=== PATIENT | female | born 1985 | race Hispanic/Latino ===

== ENCOUNTER 2019-09-07 17:03 | Outpatient (CLI) | payer BC, SELFPAY ==
--- NOTE | ~2019-09-07 | CT_ITS ---
EXAMINATION: CT abdomen pelvis w con INDICATION: Right lower quadrant pain TECHNIQUE: Computed tomographic images of the abdomen and pelvis were obtained after the administrati on of 100 cc of Omnipaque 350 intravenous contrast. The dose-length product (DLP) was 187.40 mGy-cm. Automated exposure control and iterative reconstruction technique were employed. COMPARISON: None available FINDINGS: Minimal dependent atelectasis is present in the lung bases. The heart size is normal. The l iver, spleen, pancreas, gallbladder, and adrenal glands are normal. The kidneys are unremarkable. No pathologically enlarged abdominal or pelvic lymph nodes are identified. There is no free intraperiton eal gas or evidence of bowel obstruction. A small volume of free fluid in the pelvis is likely physio logic. A corpus luteum is noted in the left ovary. A large volume of colonic stool is present. The ap pendix is not definitely identified however no right lower quadrant inflammatory change is seen. IMPRESSION: 1. Constipation. Reviewed, dictated and finalized at location [facility]. IMPRESSION: 1. Constipation.
[2019-09-07 18:33] LABS: Basophils Percent Auto 0.3 % (0.2-1.2); Eosinophils Absolute Auto 0.1 K/mm3 (0-0.3); Eosinophils Percent Auto 1.1 % (0-4.4); Hematocrit 33.3 % (37.0-47.0); Hemoglobin 10.8 g/dL (12.0-15.0); Immature Granulocyte Absolute 0.02 K/mm3 (0.00-0.031); Immature Granulocyte Percent A 0.3 % (0-0.5); Lymphocytes Absolute Auto 2.51 K/mm3 (0.9-3.2); Lymphocytes Percent Auto 33.6 % (18.3-44.2); Mean Corpuscular HGB Conc 32.4 g/dl (32-36); Mean Corpuscular Hemoglobin 28.6 pg (26-34); Mean Corpuscular Volume 88.1 fl (80-100); Mean Platelet Volume 11.4 fl (7.4-10.4); Monocytes Absolute Auto 0.7 K/mm3 (0.1-0.6); Monocytes Percent Auto 9.2 % (2.6-8.5); Neutrophils Absolute Auto 4.2 K/mm3 (1.3-6.7); Neutrophils Percent Auto 55.5 % (45.5-73.1); Platelet Count Result 257 k/mm3 (150-375); Red Blood Count 3.78 M/mm3 (4.2-5.4); Red Cell Distribution Width 13.2 % (11.5-14.5); White Blood Count 7.5 K/mm3 (4.5-10.0)
[2019-09-07 18:44] LABS: Alanine Aminotransferase 14 U/L (4-35); Albumin Level 4.6 g/dL (3.5-5.1); Alkaline Phosphatase 123 U/L (38-126); Aspartate Amino Transferase 25 U/L (14-36); Bilirubin,Total 0.2 mg/dL (0.2-1.3); Blood Urea Nitrogen 15 mg/dL (7-17); Calcium 9.1 mg/dL (8.4-10.2); Carbon Dioxide 25 mmol/L (22-30); Chloride 102 mmol/L (98-107); Estimated Glomerular Filt Rate > 60; Glucose 96 mg/dL (65-105); Potassium 4.2 mmol/L (3.4-5.0); Sodium 135 mmol/L (137-145)
== END 2019-09-07 17:04 | disposition home or self-care (01) ==
PROVIDERS: PCP Nurse Practitioner Family; Visit Provider Nurse Practitioner Family
DX: R10.31 Right lower quadrant pain (principal); R10.813 Right lower quadrant abdominal tenderness; K59.00 Constipation, unspecified
CPT/HCPCS: 36415; 74177; 80053; 85025; Q9967

== ENCOUNTER 2022-04-23 16:56 | Emergency (ER) | payer OTHER, SELFPAY ==
[2022-04-23 17:07] VITALS: BP 113/63; PULSE 72; RESP 12; TEMP 37; O2SAT 100
[2022-04-23 17:08] VITALS: BP 113/63; PULSE 72; RESP 12; TEMP 37; O2SAT 100
--- NOTE | 2022-04-23 17:34 | ED.ABDPAIN ---
HPI - Abdominal Pain General Chief Complaint: Abdominal Pain Stated Complaint: right side abd pain Time Seen by Provider: 04/23/22 17:35 Source: patient and RN notes reviewed Mode of arrival: ambulatory Limitations: no limitations History of Present Illness HPI narrative: 36-year-old female presented for complaint of right lower abdominal pain worsening over the past few days. She reports pain is anywhere from 3 to 7/10. She has had intermittent abdominal pain for about 4 months. Denies nausea, vomiting, diarrhea, fevers or chills. She has had 3 normal bowel movements today. Appetite is normal. patient is primarily Yakut speaking and requests her translate. LMP 04/07/22. Related Data Home Medications Medication Instructions Recorded Confirmed No Home Medications 04/23/22 04/23/22 Allergies Allergy/AdvReac Type Severity Reaction Status Date / Time No Known Allergies Allergy Verified 04/23/22 17:08 Review of Systems Review of Systems: CONSTITUTIONAL: Denies body aches, fever, chills CARDIOVASCULAR: Denies chest pain, palpitations, or edema. RESPIRATORY: Denies cough or dyspnea. GASTROINTESTINAL: Endorses abdominal pain, Denies nausea, vomiting, diarrhea, hematochezia, melena GENITOURINARY: Denies dysuria, hematuria, or CVA tenderness. SKIN: Denies rash, itching, or wounds. MUSCULOSKELETAL: Denies back pain, joint pain, or myalgia. NEUROLOGIC: Denies headache, numbness, tingling, or weakness. All systems reviewed & are unremarkable except as noted in HPI and below PMFSH Past Medical History Medical History (Updated 04/23/22 @ 17:49 by Amy Javed APRN) No pertinent past medical history Family History Family History Grandparent Diabetes mellitus Social History Social History Smoking status: Never smoker Alcohol intake: never Substance use: never Comments At time of signature, I have reviewed and agree with nursing past medical, surgical, social and family history unless otherwise noted. Please see nursing chart for further information. There is no relevant family history pertinent to the presenting complaint Exam Narrative: GENERAL: Well-appearing, and in no acute distress. EYES: EOMI. Conjunctivae normal. ENT: Mucous membranes pink and moist. CHEST: No respiratory distress. Clear to auscultation. HEART: Regular rate and rhythm. No murmur appreciated. Normal peripheral pulses. ABDOMEN: abd soft, nondistended, normal active bowel sounds. Tender abdomen to RLQ. No guarding, rebound tenderness, asymmetry SKIN: Warm, dry, no rash. Capillary refill normal. Normal skin turgor. NEURO: No focal deficits. Alert and oriented x3. Course Course Emergency Course: Patient is aware of diagnosis, understands and agrees to treatment plan. Anticipatory guidance given. Portions of this record may have been created with voice recognition software Level of Care: Express Care Visit Vital Signs Vital signs: Vital Signs Temperature 98.6 F 04/23/22 17:07 Pulse Rate 72 04/23/22 17:07 Respiratory Rate 12 04/23/22 17:07 Blood Pressure 113/63 04/23/22 17:07 Pulse Oximetry 100 04/23/22 17:07 Oxygen Delivery Room Air 04/23/22 17:07 Temperature 98.6 F 04/23/22 17:08 Pulse Rate 72 04/23/22 17:08 Respiratory Rate 12 04/23/22 17:08 Blood Pressure 113/63 04/23/22 17:08 Pulse Oximetry 100 04/23/22 17:08 Oxygen Delivery Room Air 04/23/22 17:08 [facility] Transportation: Other (private vehicle) Transfer rationale: Pt is agreeable to transfer. Requests transfer to [facility] via private vehicle. Risks of transportation reviewed with pt including injury, worsening of condition and . v/u. will be driving pt; Report called to hospital, spoke with Lesvia TILLMAN, Dr Best
== END 2022-04-23 17:54 | disposition short-term general hospital (02) ==
PROVIDERS: Emergency Provider Nurse Practitioner Family
DX: R10.31 Right lower quadrant pain (principal)
CPT/HCPCS: 81003; 81025; 99212; G0463

== ENCOUNTER 2024-02-13 07:31 | Outpatient (CLI) | payer OTHER, SELFPAY ==
--- NOTE | ~2024-02-13 | US_ITS ---
US abdomen complete DATE: 02/13/2024 08:06 INDICATION: Right abdominal pain TECHNIQUE: Real-time imaging and Doppler analysis COMPARISON: 09/07/2019 CT abdomen pelvis FINDINGS: No hepatic or pancreatic space-occupying mass lesion. Normal hepatopedal portal venous flow direction. No gallstones or gallbladder wall thickening. The common bile duct measures 3.3 mm, normal. Right kidney measures 8.5 cm length, left kidney 9.3 cm length. No renal mass lesion or hydronephrosi s. Normal splenic size. IMPRESSION: No significant abnormality Reviewed, dictated and finalized at [facility]. Reviewed, dictated and finalized at location A. 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
== END 2024-02-13 07:32 | disposition home or self-care (01) ==
LOC: MICIMG 07:31
PROVIDERS: PCP Family Medicine; Visit Provider Nurse Practitioner Family
DX: R10.31 Right lower quadrant pain (principal)
CPT/HCPCS: 76700

== ENCOUNTER 2024-03-29 12:13 | Outpatient (CLI) | payer OTHER, SELFPAY ==
--- NOTE | ~2024-03-29 | CT_ITS ---
EXAMINATION: CT abdomen pelvis w con DATE: 03/29/2024 12:50 INDICATION: Right lower quadrant pain with palpation TECHNIQUE: Computed tomography (CT) of the abdomen and pelvis was performed with 100 mL Omnipaque-350 intravenous contrast. Automated exposure control and iterative reconstruction technique were employe d. The dose-length product was 198.58 mGy-cm. COMPARISON: 09/07/2019 FINDINGS: Lung bases are clear. Heart size is normal. No pericardial or pleural effusion. Liver, gallbladder, s pleen, pancreas, bilateral adrenal glands and kidneys are normal. Bowels including the appendix are n ormal. The partially decompressed bladder, anteverted uterus and right ovary are unremarkable. 12 mm left ovarian follicle. Again seen are prominent bilateral parametrial veins particularly on the left along with enlarged left gonadal vein which can be seen with pelvic vasculature congestion syndrome. No free intraperitoneal gas or fluid. No pathologically enlarged abdominal or pelvic lymphadenopathy. Mild thoracolumbar dextrocurvature. IMPRESSION: 1. No acute intra-abdominal/pelvic process. Specifically the appendix and gallbladder are normal. Reviewed, dictated and finalized at location B. 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 No acute intra-abdominal/pelvic process. Specifically the appendix and gallb ladder are normal.
== END 2024-03-29 12:14 | disposition home or self-care (01) ==
PROVIDERS: PCP Family Medicine; Visit Provider Nurse Practitioner
DX: R10.31 Right lower quadrant pain (principal); G89.29 Other chronic pain; R10.813 Right lower quadrant abdominal tenderness
CPT/HCPCS: 74177; Q9967